=== PATIENT | male | born 1980 | race Caucasian/White ===

== ENCOUNTER 2024-12-15 11:55 | Outpatient (RCR) | payer OTHER, SELFPAY | END 2024-12-15 14:10 | disposition home or self-care (01) | LOC: HO.PT 11:55 | PROVIDERS: PCP Family Medicine; Visit Provider Family Medicine | DX: M54.16 Radiculopathy, lumbar region (principal) | CPT/HCPCS: 97012; 97110; 97112; 97161 ==

== ENCOUNTER 2024-12-18 15:14 | Outpatient (AMB) | payer OTHER, SELFPAY ==
--- NOTE | 2024-12-18 15:19 | MHC.OFFVIS ---
Vital Signs 12/18/24 15:24 Height 6 ft 1 in Weight 223 lb 6 oz BMI 29.5 BP 131/78 Blood Pressure Location Lt brachial Position Sitting Pulse 65 Pulse Source Pulse Oximeter Pulse Oximetry (%) 100 Oxygen Delivery Method Room Air Intake Visit Reasons: Intervertebral Disc Displacement Intake Note: Pain today while walking 08/14 Fell Cutter Required: No Accompanied by: Self / Same As Patient Allergies No Known Allergies Allergy (Verified 12/18/24 15:24) HPI Comments Details: The patient is a 44-year-old male presenting with chronic low back pain radiating to the left lower extremity. The pain has been present intermittently since 2000 and was exacerbated in July of this year without any known trauma or injury. The pain is described as stabbing, pinching, cramping, dull, sore, hurting, aching, heavy, and tight squeezing. The pain is constant and exacerbated by activities such as walking, sitting, and bending, with a severity of 7 to 8 out of 10. Lying down or sleeping reduces the pain to minimal or none, but it significantly affects daily activities and functioning. The patient has undergone physical therapy and chiropractic manipulation without relief. He has also used a TENS unit without pain relief and completed imaging studies at [facility] as noted below. 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 He has a sit-stand desk but finds standing more painful than sitting. He denies any history of diabetes and reports occasional alcohol use and past cannabis use. - Onset: Intermittent since 2000, exacerbated in July 2022 - Quality: Stabbing, pinching, cramping, dull, sore, hurting, aching, heavy, tight squeezing - Location: Low back radiating to left lower extremity - Radiation: To lateral and posterior left lower extremity - Exacerbating factors: Walking, sitting, bending - Relieving factors: Lying down, sleeping - Interference: Affects daily activities and functioning - Affect: Pain significantly affects daily activities and functioning - Analgesia: No relief from physical therapy, chiropractic manipulation, or TENS unit - Adverse Effects: None reported - Activities of Daily Living: Pain affects ability to sit and stand for prolonged periods - Aberrant Drug Related Behaviors: None reported [facility] Medical History Ganglion of hand Chronic bronchitis Lower back pain Social History Alcohol intake: current Alcohol type: beer Substance Use Type: Marijuana Review of Systems Const All systems reviewed & are unremarkable except as noted in HPI and below Physical Exam Vital Signs: Last Vital Signs Pulse 65 12/18/24 15:24 BP 131/78 12/18/24 15:24 Pulse Ox 100 12/18/24 15:24 Oxygen Delivery Method Room Air 12/18/24 15:24 BMI result Body Mass Index 29.5 General: Appears afebrile. Alert and oriented. Mood and affect appropriate. Follows and participates in conversation appropriately. Respiratory effort is unlabored. No cough. Able to transition from sit to stand unassisted. Ambulates with bilaterally normal heel strike and toe off. General: Yes no CVA tenderness Back/Spine/Pelvis Other: Patient is able to walk and stand on heels and tip toes with no difficulties demonstrating good motor tone. No limping. Can flex forward to 65-70 degrees and extend to 10-15 degrees before experiencing lumbar pain, worse pain with flexion and bending forward. Demonstrates 5/5 strength of quadriceps bilaterally as well as flexion/dorsiflexion of bilateral feet against resistance. 2+ pedal pulses bilaterally. Straight leg rise with dorsiflexion positive on the left. +2 patellar and achilles reflexes bilaterally. Facet loading test positive bilaterally. Benoit?s, Pelvic compression and Stinchfield tests are negative bilaterally. No groin pain with I/E hip rotations. Valsalva maneuver negative. Back: no CVA tenderness Cervical Spine: cervical ROM normal and No Cervical spine tenderness Thoracic/Lumbar Spine: thoracic and lumbar spine normal to inspection, No Thoracic/lumbar spine scar(s), Lasegue's sign positive on the left and localized, pain with thoraco-lumbar ROM, paraspinal muscle tenderness on the left greater than right, thoraco-lumbar ROM limited, Thoracic/lumbar scoliosis (mild), No thoracic spinal tenderness and lumbar spinal tenderness (L4-S1) Pelvis: buttock tenderness on the left Sacroiliac joints: bilaterally nontender Extrem General: Yes capillary refill normal, Yes no clubbing, cyanosis or edema and Yes no calf tenderness Results Reviewed Results Reviewed: MR LUMBAR SPINE WITHOUT CONTRAST 12/17/24 [facility] INDICATION: Back and leg pain COMPARISON: None. TECHNIQUE: Multiplanar T1 and T2-weighted imaging of the lumbar spine. FINDINGS: The conus is in its normal position at the level of T12-L1. There are Modic type I reactive degenerative endplate changes present at L5-S1. Throughout the lumbar spine, diffuse degenerative disc changes are present with varying degrees of disc desiccation. T12-L1: Mild disc bulging is present. Mild facet osteoarthritic changes are present. The central canal and neural foramen are patent. L1-L2: The central canal and neural foramen are patent. L2-3: Broad-based disc bulging is present. The central canal and neural foramen are patent. L3-4: Mild facet osteoarthritic changes are present. The central canal and neural foramen are patent. L4-5: Moderate facet osteoarthritic changes are present. The central canal and neural foramen are patent. L5-S1: There is a broad-based central and right paracentral disc herniation present that compresses the right S1 nerve root within the right lateral recess. This also touches the left S1 nerve root as it exits from the dural sac in a position that could irritate it. There is moderate narrowing present of both neural foramen. IMPRESSION: Spondylotic findings as described above that are most prominent at L5-S1 where there is a disc herniation present. X-RAY LUMBAR SPINE 4+ VIEWS 06/01/2017 [facility] HISTORY: Low back pain radiating to the right lower extremity despite despite treatment rule out fracture or other pathology COMPARISON: None. FINDINGS: There is no evidence for fracture or dislocation. The discs are of normal height. Is very mild scoliosis of the lumbar spine convex right. There is no evidence for spondylolysis or spondylolisthesis. SI joints appear normal. IMPRESSION: Mild lumbar scoliosis convex right. Otherwise normal lumbosacral spine series. Assessment & Plan Assessment & Plan (1) Lumbosacral disc herniation: Code(s): M51.27 - Other intervertebral disc displacement, lumbosacral region Category: Medical (2) Lumbar radiculopathy: Code(s): M54.16 - Radiculopathy, lumbar region Category: Medical (3) Chronic low back pain with sciatica: Code(s): M54.40 - Lumbago with sciatica, unspecified side; G89.29 - Other chronic pain Category: Medical (4) Lumbar spondylosis: Code(s): M47.816 - Spondylosis without myelopathy or radiculopathy, lumbar region Category: Medical Plan The plan includes administering steroid injections at the L5-S1 level on both sides to alleviate pain and inflammation. If the steroid injections provide relief, they may offer up to three months of pain relief, and the patient will be reassessed in one month to determine the next steps. Schedule Bilateral L5-S1 TFESI with local and fluoroscopy. Expectations, risks and benefits were reviewed. Patient is aware he will be contacted to schedule this procedure. The patient is advised to modify activities, avoid excessive sitting and standing, and refrain from heavy lifting and excessive bending , heavy lifting or twisitng to prevent exacerbation of symptoms. Physical therapy exercises should be continued, focusing on core strengthening and avoiding weight lifting. In the long term care social worker, if conservative measures fail, Neurosurgical consultation may be considered. All questions and concerns have been answered and patient agreed with the treatment plan. Follow up after injection and sooner as needed. Patient was informed and verbally consented to the use of an ambient scribe for clinic note documentation during this visit. Coding Level of Care Code New Pt Level 4 (19138) Diagnoses Lumbosacral disc herniation M51.27 Lumbar radiculopathy M54.16 Chronic low back pain with sciatica M54.40; G89.29 Lumbar spondylosis M47.816
[2024-12-18 15:24] VITALS: BP 131/78; PULSE 65; O2SAT 100; BMI 29.5
== END 2024-12-18 16:12 | disposition home or self-care (01) ==
LOC: HO.PMC 15:15
PROVIDERS: PCP Family Medicine; Visit Provider Nurse Practitioner Family
DX: M51.27 Other intervertebral disc displacement, lumbosacral region (principal); M54.16 Radiculopathy, lumbar region; M54.40 Lumbago with sciatica, unspecified side; G89.29 Other chronic pain; M47.816 Spondylosis without myelopathy or radiculopathy, lumbar region
CPT/HCPCS: 99204

== ENCOUNTER → 2024-12-18 15:14 | Outpatient (BNVA) | payer OTHER, SELFPAY | PROVIDERS: PCP Family Medicine; Visit Provider Nurse Practitioner Family | DX: M51.27 Other intervertebral disc displacement, lumbosacral region (principal); M54.16 Radiculopathy, lumbar region; M54.40 Lumbago with sciatica, unspecified side; G89.29 Other chronic pain; M47.816 Spondylosis without myelopathy or radiculopathy, lumbar region | CPT/HCPCS: 99202 ==

== ENCOUNTER 2025-01-13 06:22 | Outpatient (REF) | payer OTHER, SELFPAY ==
--- NOTE | ~2025-01-13 | FL_ITS ---
EXAMINATION: FL GUIDANCE ONLY HISTORY: M54.16 - Radiculopathy, lumbar region COMPARISON: None available. TECHNIQUE: Fluoroscopy time: 1 minute, 7 seconds. Cumulative Dose: 22.30 mGy. DAP: 4775.10 mGycm2 Images: 5. FINDINGS: Fluoroscopic spot films of the lumbar spine demonstrate needles and contrast material in the regions of the bilateral L5-S1 facet joints. FL/FL guidance in treatment room IMPRESSION: Fluoroscopy during procedure. Please see procedure report for additional information. Electronically signed by: Romain Gomez MD 01/13/2025 01:03 PM [facility]
== END 2025-01-13 06:23 | disposition home or self-care (01) ==
LOC: CF 06:22
PROVIDERS: Visit Provider Anesthesiology
DX: M54.16 Radiculopathy, lumbar region (principal)
CPT/HCPCS: 64483; J2003; J3301; Q9967

== ENCOUNTER 2025-01-13 11:00 | Outpatient (AMB) | payer OTHER, SELFPAY ==
[2025-01-13 11:01] VITALS: BP 137/79; PULSE 68; RESP 16; O2SAT 98; BMI 29.4
--- NOTE | 2025-01-13 11:01 | A.OFFVIS_ITS ---
Vital Signs 01/13/25 11:01 01/13/25 12:17 Height 6 ft 1 in Weight 223 lb BMI 29.4 BP 137/79 117/68 Blood Pressure Location Lt brachial Lt brachial Position Sitting Sitting Respiration 16 16 Pulse 68 53 Pulse Source Pulse Oximeter Pulse Oximeter Pulse Oximetry (%) 98 95 Oxygen Delivery Method Room Air Room Air Intake Visit Reasons: Bilateral L5-S1 TFESI Allergies No Known Allergies Allergy (Verified 12/18/24 15:24) PFSH Medical History Ganglion of hand Chronic bronchitis Lower back pain Social History Alcohol intake: current Alcohol type: beer Substance Use Type: Marijuana Physical Exam Vital Signs: Last Vital Signs Pulse 53 01/13/25 12:17 Resp 16 01/13/25 12:17 BP 117/68 01/13/25 12:17 Pulse Ox 95 01/13/25 12:17 Oxygen Delivery Method Room Air 01/13/25 12:17 BMI result Body Mass Index 29.4 Assessment & Plan Assessment & Plan (1) Lumbar radiculopathy: Code(s): M54.16 - Radiculopathy, lumbar region Category: Medical Plan Bilateral Transforaminal epidural steroid injection L5-S1. Informed consent was thoroughly explained to the patient before the procedure. The patient came to the operating room. He was positioned prone on operating table with a pillow under her abdomen. Time-out was performed delineating correct site and side of the procedure, nature of the injection, name and date of of the patient. The lower back of the patient was prepped with ChloraPrep and draped with sterile utility towels. C-arm was brought over the operating field and sq picture of L5 vertebra was demonstrated on the screen. The right side was chosen as the initial side of the injection. Tilting machine ipsilateral to the left at the level of L5 the most prominent picture of the pedicle on the right was demonstrated on the screen. 3 mm below the most lowest point of the pedicle projection to the skin small amount of lidocaine 1% was injected to anesthetize the skin. After that 5 in 22 gauge Quincke point needle was inserted through the skin wheal and was advanced toward the L3-L4 foramina on anterior posterior, lateral and oblique views intermittently. When tip of the needle entered foramina projection on AP view injection of the contrast was performed demonstrating epidural and perineural spread of the contrast. Contrast application repeated as digital distraction image and it did not demonstrate pathological spread of the contrast such as vascular runoff or intrathecal spread. After that injection of the treatment medicine 3 cc of preservative- free lidocaine 1% mixed with Kenalog 20 mg was injected into the foramina. No intrathecal and no intravascular spread of the contrast was noted. After that the procedure was repeated on the left side in the mirroring fashion.. Upon completion of the procedure needle was removed and sterile Band-Aid was applied. Patient tolerated the procedure well, however minor vasovagal reaction was observed after the procedure was completed. Bed rest for 1 hour.. After that condition of patient improved and he walked out home without immediate complications. Coding Level of Care Code Procedure Only Diagnoses Lumbar radiculopathy M54.16
[2025-01-13 12:17] VITALS: BP 117/68; PULSE 53; RESP 16; O2SAT 95
== END 2025-01-13 12:23 | disposition home or self-care (01) ==
LOC: HO.PMCPRC 11:00
PROVIDERS: PCP Family Medicine; Visit Provider Anesthesiology
DX: M54.16 Radiculopathy, lumbar region (principal)
CPT/HCPCS: 64483